=== PATIENT | male | born 1965 | race Asian ===

== ENCOUNTER 2022-10-17 13:36 | Emergency (ER) | payer OTHER ==
[~2022-10-17] VITALS: Ht 177.8 cm; Wt 85.0 kg
[2022-10-17] MEDS ORDERED: SODIUM CHLORIDE 0.9% 1,000 ML IV ONE (14:00)
[2022-10-17] MEDS ORDERED: ONDANSETRON HCL 4MG/2ML INJ IV STA (14:00)
[2022-10-17 15:16] LABS: HEMOGLOBIN. 16.5 g/dL (14.0-18.0); MEAN CORPUSCULAR HEMOGLOBIN 30.3 pg (28.0-32.0); MEAN CORPUSCULAR VOLUME 87.9 fL (80.0-94.0); MEAN PLATELET VOLUME 9.7 fl (7.4-10.4); PLATELET 179 x1000/uL (130-400); RED BLOOD CELL COUNT 5.45 mill/uL (4.7-6.1); RED CELL DISTRIBUTION WIDTH 12.9 % (11.6-14.6)
[2022-10-17 15:17] LABS: CHLORIDE 108 mEq/L (98-107)
[2022-10-17 15:50] LABS: PLATELET ESTIMATE NORMAL
[2022-10-17] MEDS ORDERED: ONDANSETRON HCL 4MG/2ML INJ IV NR (16:30)
[2022-10-17] MEDS ORDERED: ONDA4TAB50 MT (17:45)
[2022-10-17] MEDS ORDERED: IMOD MT (17:45)
[2022-10-17 18:15] VITALS: BP 127/81
== END 2022-10-17 18:15 | disposition home or self-care (01) ==
LOC: ER 13:36
DX: R11.2 Nausea with vomiting, unspecified (principal); R19.7 Diarrhea, unspecified
CPT/HCPCS: 36415; 80053; 83690; 85025; 96361; 96374; 99283; J2405; J7030; Z7610